=== PATIENT | male | born 1995 | race Caucasian/White ===

== ENCOUNTER 2021-03-08 09:21 | Emergency (ER) | payer SELFPAY ==
[~2021-03-08 09:21] MED LIST: FLEXERIL 10 MG10 MG PO; IBUPROFEN600 MG PO; NAPROSYN500 MG PO
[2021-03-08] MEDS ORDERED: IBUPROFEN600 MG PO (09:57)
== END 2021-03-08 10:30 | disposition home or self-care (01) ==
LOC: ER1 09:21
DX: S60.031A Contusion of right middle finger without damage to nail, initial encounter (principal); W20.8XXA Other cause of strike by thrown, projected or falling object, initial encounter; Y92.009 Unspecified place in unspecified non-institutional (private) residence as the place of occurrence of the external cause
CPT/HCPCS: 73140; 99283